=== PATIENT | female | born 1965 | race Caucasian/White ===

== ENCOUNTER 2023-10-02 18:17 | Emergency (ER) | payer BC ==
[~2023-10-02] VITALS: Ht 152.4 cm; Wt 70.5 kg
[2023-10-02] MEDS ORDERED: Cephalexin 500 MG CAP PO ONE (21:00)
[2023-10-02] MEDS ORDERED: CEPHALEXIN500 M1 PO (21:02)
[2023-10-02 21:27] VITALS: BP 115/79; PULSE 88; TEMP 98
== END 2023-10-02 21:27 | disposition home or self-care (01) ==
LOC: COL.ER 18:17
DX: S61.011A Laceration without foreign body of right thumb without damage to nail, initial encounter (principal); Z23 Encounter for immunization; Z91.040 Latex allergy status; W26.8XXA Contact with other sharp object(s), not elsewhere classified, initial encounter; Y93.G1 Activity, food preparation and clean up